=== PATIENT | female | born 1995 | race Caucasian/White ===

== ENCOUNTER 2018-11-19 10:40 | Emergency (ER) | payer OTHER, SELFPAY ==
[2018-11-19 10:48] VITALS: BP 120/86; PULSE 105; RESP 16; TEMP 36.8; O2SAT 100
--- NOTE | 2018-11-19 11:06 | DI.US_ITS ---
SYMPTOM/DIAGNOSIS: RUQ PAIN ABDOMINAL ULTRASOUND: Routine examination was performed. The aorta is unremarkable. The inferior vena cava is unremarkable. The liver is normal in size. No suspicious hepatic mass is seen. There are stones seen within the gallbladder. The gallbladder is contracted making evaluation of the wall difficult. No pericholecystic fluid is seen. The common duct is at the upper limits of normal at 6 mm. No choledocholithiasis is seen sonographically. The pancreas and spleen are unremarkable. There is a 4 mm echogenic focus in the inferior pole of the left kidney likely reflecting a benign lesion such as an angiolipoma. The kidneys are otherwise unremarkable. IMPRESSION: Cholelithiasis. No evidence of choledocholithiasis. There was a negative sonographic Christianson sign. The findings were discussed with the Emergency Department on the date of the examination.
[2018-11-19 11:26] LABS: Abs Immature Grans 0.03 k/cumm (0.0-0.09); Absolute Eosinophil Count 0.09 k/cumm (0.0-0.7); Absolute Lymphocyte Count 2.48 k/cumm (1.2-3.4); Absolute Monocyte Count 0.76 k/cumm (0.11-0.7); Absolute Neutrophil Count 8.05 k/cumm (1.2-6.7); Basophils % 0.3; Eosinophils % 0.8; HCT 43.4 % (36.0-46.0); HGB 14.6 g/dL (12.0-15.5); Immature Grans % 0.3; Lymphocytes % 21.7; Mean Corp. HGB Concentration 33.6 g/dL (32.0-36.0); Mean Corpuscular Hemoglobin 30.1 pg (27.0-33.0); Mean Corpuscular Volume 89.5 fL (80-95); Mean Platelet Volume 9.6 fL (8.0-11.0); Monocytes % 6.6; Neutrophils % 70.3; Platelet Count 406 x1000/uL (130-400); RBC 4.85 m/cumm (4.00-5.20); RBC Distribution Width 12.8 % (11.7-14.6); White Blood Cell Count 11.45 k/cumm (4.4-10.8)
[2018-11-19 11:31] LABS: Absolute Basophil Count 0.03 k/cumm (0.0-0.2)
[2018-11-19 11:41] LABS: ALT 20 U/L (12-78); AST 10 U/L (15-37); Albumin 4.1 g/dL (3.4-5.0); Alkaline Phosphatase 69 U/L (46-116); Anion Gap 9.3 mmol/L (3-11); BUN 12 mg/dL (7-18); Bilirubin, Total 0.6 mg/dL (0.2-1.0); CO2 25.7 mmol/L (21.0-32.0); CREATININE 0.79 mg/dL (0.55-1.02); Calcium 9.1 mg/dL (8.5-10.1); Chloride 102 mmol/L (98-107); Glucose 107 mg/dL (70-100); Lipase 72 U/L (73-393); Magnesium 1.8 mg/dL (1.8-2.4); Potassium 3.5 mmol/L (3.5-5.1); Sodium 137 mmol/L (136-145); Total Protein 8.1 g/dL (6.4-8.2)
[2018-11-19 12:33] LABS: Bilirubin Small (Negative); Blood Trace-lysed (Negative); Clarity Sl Cloudy (Clear); Glucose Negative (Negative); Ketones 40 mg/dL (Negative); Leukocyte Esterase Trace (Negative); Nitrite Negative (Negative); pH 5.5 (5-8)
[2018-11-19 12:43] LABS: Bacteria Many HPF (Negative); C & S Indicated? No/Sq. Contamination; Epithelial Cells Many HPF (Negative)
--- NOTE | 2018-11-19 12:52 | W.ED.GENAD ---
Discharge Plan Disposition Patient Disposition: HOME Condition: Stable Discharge Details Chief Complaint: Abd Prob Clinical Impression: Cholelithiasis Primary Care Provider: Kat,Local ED Provider: Jamey Yuen Home Meds and New Rx's Prescriptions: Continued norgestimate-ethinyl estradiol [Sprintec (28)] 0.25-35 mg-mcg Tablet 1 tab PO DAILY RF: 0 Discharge Instructions Instructions: Biliary Colic (ED), Gallstones (ED) Additional Instructions: You should eat a low-fat diet and slowly advance your diet as tolerated by discomfort. You may use [id number] NSAIDs as needed for discomfort. Return immediately to the emergency department for any new or worsening symptoms, nausea vomiting, fever chills, or any further concerns otherwise follow-up with department general surgery for outpatient evaluation and further treatment as needed Referrals: [facility] [Outside] (Please call general surgery next week for arrangement of follow-up appointment) Discharge Data Discharge Date/Time-TO BE ENTERED AT DEPARTURE: 11/19/18 13:01 Medical Decision Making Abdominal pain x3 days with worsening last 24 hours, healthy female, does report mother needed her gallbladder out at age 26. She states right upper quadrant discomfort with some associated nausea. Physical exam shows a mild positive Christianson sign, otherwise unremarkable exam. Concern for cholelithiasis versus cholecystitis. Plan to do labs and ultrasound. Patient denies any need for pain medication at this Review of labs show a nonspecific mild leukocytosis, unremarkable CMP with non-worrisome LFTs no elevated bilirubin, AST of 10, ALT of 20, alk phos of 69. Lipase is 72, UA shows some ketones and trace blood small amount of bilirubin muslim otherwise nondiagnostic noninfected. Ultrasound imaging shows gallstone that appears to be stuck in the neck of the gallbladder but due to contracted gallbladder difficult to measure per generation technician. there does seem to be some common bile ductal dilatation but otherwise no other acute findings noted. Spoke with Dr. Vaughan due to patient requesting to follow-up with [facility] general surgery. Dr. Vaughan stated that patient should be on low-fat diet, and slowly advance diet as tolerated. Along with discussing return precautions patient may follow-up on outpatient basis. Return precautions were discussed with patient. Patient placed upon care management follow-up list for referral to general surgery at [facility] for cholelithiasis. After discussion of diagnosis and plan of care patient has no further needs, questions, or concerns and states clear understanding to return to the emergency department for any worsening symptoms. HPI General Mode of arrival: ambulatory. Date/Time Provider Initiated Documentation: 11/19/18 10:51. Limitations to Documentation: no limitations. Information obtained by: patient and RN notes reviewed. History of Present Illness 23 year old F presents to the emergency department with the chief complaint of Abdominal, described as mild, with intensity rated at 2. Quality is described as sharp (Cramp), and is localized to the abdomen (Right upper). Patient started experiencing this day(s) (3, with worsening since last night) and it has been constant. Eating worsens symptoms . Patient did receive the following treatments prior to arrival, none Related Data Home Medications Medication Instructions Recorded Confirmed norgestimate-ethinyl estradiol 1 tab PO DAILY 11/19/18 11/19/18 [Sprintec (28)] Allergies Allergy/AdvReac Type Severity Reaction Status Date / Time amoxicillin Allergy Skin Rash Unverified 11/19/18 10:56 General Stated Complaint: Abd Prob DIANA: 3 Review of Systems Constitutional Denies chills, Denies fever(s) and Reports poor appetite Cardiovascular Denies chest pain and Denies dyspnea Respiratory Denies cough and Denies dyspnea Gastrointestinal Reports as per HPI, Reports abdominal pain, Denies melena, Denies change in bowel habits, Denies constipation, Denies diarrhea, Reports nausea and Denies vomiting Genitourinary Denies hematuria, Denies dysuria and Denies vaginal discharge Integumentary/Breasts Denies rash [facility] Social History Smoking/Tobacco Use Status: Never Alcohol Intake: current Alcohol Intake frequency: a few times a month Drug use: Never Do you feel safe at home: Yes Do you feel safe in your relationship?: Yes Exam Const General: cooperative Orientation: alert, awake and oriented x3 Resp Effort & Inspection: normal respiratory effort and able to speak in complete sentences Auscultation: clear to auscultation bilaterally Cardio Rate: regular rate Rhythm: regular rhythm Heart Sounds: S1 normal and S2 normal GI Palpation: soft, no hepatosplenomegaly, not firm, no guarding, no masses, no pulsatile masses, not rigid, no splenomegaly and tender in the RUQ and Christianson's sign positive; not in the epigastrum, not at McBurney's point and Rovsing's sign negative Auscultation: normal bowel sounds Back/Spine/Pelvis Back: no CVA tenderness Neuro General: alert, awake, oriented x3, gait normal and moves all extremities Course Vital Signs Temperature 36.8 C 11/19/18 10:48 Pulse 105 H 11/19/18 10:48 Respiratory Rate 16 11/19/18 10:48 Blood Pressure 120/86 11/19/18 10:48 Pulse Oximetry 100 11/19/18 10:48 Temperature 36.8 C 11/19/18 10:48 Temperature Source Temporal Artery Scan 11/19/18 10:48 Pulse 105 H 11/19/18 10:48 Respiratory Rate 16 11/19/18 10:48 Respiratory Effort Non-Labored 11/19/18 10:54 Blood Pressure 120/86 11/19/18 10:48 Blood Pressure Position Sitting 11/19/18 10:48 Pulse Oximetry 100 11/19/18 10:48 Oxygen Delivery Method Room Air 11/19/18 10:48 Oxygen Flow Rate 0 11/19/18 10:48 Pain Level 4 11/19/18 10:57 Lab/Test Results Lab/Test Results: Laboratory Tests Range/Units 11/19/18 11/19/18 11/19/18 11:17 11:17 12:29 WBC (4.4-10.8) k/cumm 11.45 H RBC (4.00-5.20) m/cumm 4.85 Hgb (12.0-15.5) g/dL 14.6 Hct (36.0-46.0) % 43.4 MCV (80-95) fL 89.5 MCH (27.0-33.0) pg 30.1 MCHC (32.0-36.0) g/dL 33.6 RDW (11.7-14.6) % 12.8 Plt Count (130-400) x1000/uL 406 H MPV (8.0-11.0) fL 9.6 Immature Gran % 0.3 Neutrophils % 70.3 Lymphocytes % 21.7 Monocytes % 6.6 Eosinophils % 0.8 Basophils % 0.3 Absolute Neutrophils (1.2-6.7) k/cumm 8.05 H Absolute Lymphocytes (1.2-3.4) k/cumm 2.48 Absolute Monocytes (0.11-0.7) k/cumm 0.76 H Absolute Eosinophils (0.0-0.7) k/cumm 0.09 Absolute Basophils (0.0-0.2) k/cumm 0.03 Sodium (136-145) mmol/L 137 Potassium (3.5-5.1) mmol/L 3.5 Chloride (98-107) mmol/L 102 Carbon Dioxide (21.0-32.0) mmol/L 25.7 Anion Gap (3-11) mmol/L 9.3 BUN (7-18) mg/dL 12 Creatinine (0.55-1.02) mg/dL 0.79 Estimated GFR/1.73 m2 (mL/min/1.73m2) >= 60.00 Glucose (70-100) mg/dL 107 H Calcium (8.5-10.1) mg/dL 9.1 Magnesium (1.8-2.4) mg/dL 1.8 Total Bilirubin (0.2-1.0) mg/dL 0.6 AST (15-37) U/L 10 L ALT (12-78) U/L 20 Alkaline Phosphatase (46-116) U/L 69 Total Protein (6.4-8.2) g/dL 8.1 Albumin (3.4-5.0) g/dL 4.1 Lipase (73-393) U/L 72 L Urine Color (Yellow) Yellow Urine Clarity (Clear) Sl cloudy Urine pH (5-8) 5.5 Ur Specific [place] (1.005-1.025) 1.020 Urine Protein (Negative) mg/dL Trace H Urine Ketones (Negative) mg/dL 40 H Urine Blood (Negative) Trace-lysed H Urine Nitrite (Negative) Negative Urine Bilirubin (Negative) Small H Urine Urobilinogen (Up TO 0.2) EU/dL 1.0 H Ur Leukocyte Esterase (Negative) Trace H Urine RBC (0-2) Urine WBC (0-5) HPF Ur Epithelial Cells (Negative) HPF Many Urine Crystals Not Applicable Urine Bacteria (Negative) HPF Many Urine Mucus Not Applicable Ur Culture Indicated? No/sq. contamination Urine Glucose (Negative) mg/dL Negative POC- Test(urine) Negative
== END 2018-11-19 13:01 | disposition home or self-care (01) ==
PROVIDERS: Emergency Provider Nurse Practitioner Family; PCP Family Medicine
DX: K80.70 Calculus of gallbladder and bile duct without cholecystitis without obstruction (principal)
CPT/HCPCS: 36415; 80053; 81025; 83690; 99284; 76700; 81003; 81015; 83735; 85025